=== PATIENT | male | born 1985 | race American Indian/Alaskan Native ===

== ENCOUNTER 2020-08-27 20:02 | Emergency (ER) | payer SELFPAY ==
[2020-08-27] MEDS ORDERED: levETIRAcetam 1000 MG/NS 0.75% 1,000 MG/100 ML BAG IV ONE (20:25)
[2020-08-27 20:50] LABS: Hemoglobin 13.6 gm/dl (11.8-15.2)
[2020-08-27 21:00] LABS: INR 0.89 (0.87-1.13)
[2020-08-27 21:13] LABS: Bilirubin,Urine NEG (Negative); Blood,Urine SM (Negative); Color,Urine Colorless (Yellow); Mucus,Urine FEW /HPF; Protein,Urine <15 mg/dL mg/dL (Negative); Urobilinogen,Urine < 2.0 mg/dL (<2.0); WBC,Urine < 1.0 /HPF (0.0-6.0)
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
[2020-08-27 21:16] LABS: Alanine Aminotransferase 18 units/L (7-56); Albumin 4.4 g/dL (3.9-5); Blood Urea Nitrogen 11 mg/dL (9-20); Calcium 8.9 mg/dL (8.4-10.2); Hemolysis Index 28
[2020-08-27] MEDS ORDERED: HALOPERIDOL LACTATE 5 MG/1 ML INJ IM PRN (21:20)
[2020-08-27] MEDS ORDERED: LORazepam 2 MG/ML VIAL IM PRN (21:20)
[2020-08-27 21:21] LABS: BUN/Creatinine Ratio 16
[2020-08-27] MEDS ORDERED: ACETAMINOPHEN 325 MG TAB PO ONE (21:52)
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
--- NOTE | 2020-08-27 22:28 | Cat Scan Report ---
CT CERVICAL SPINE WITHOUT CONTRAST INDICATION: Seizure. TECHNIQUE: All CT scans at this location are performed using CT dose reduction for ALARA by means of automated e xposure control. Axial CT images were obtained through the cervical spine. Sagittal and coronal reformatted images we re produced. COMPARISON: None available. FINDINGS: Fracture: None. Subluxation: None. Spinal canal: No significant compromise. Disc spaces: Normal. Facet joints: Normal. Paraspinal soft tissues: No soft tissue swelling. Normal. Additional findings: None. Lung apices: Normal. IMPRESSION: 1. No acute findings. Signer Name: Ashok Macedo MD Signed: 08/27/2020 10:23 PM Workstation Name: [id number]
--- NOTE | 2020-08-27 22:37 | Cat Scan Report ---
CT HEAD WITHOUT CONTRAST INDICATION / CLINICAL INFORMATION: Seizure. TECHNIQUE: All CT scans at this location are performed using CT dose reduction for ALARA by means of automated e xposure control. COMPARISON: None available. FINDINGS: HEMORRHAGE: None. EXTRA-AXIAL SPACES: Normal in size and morphology for the patient's age. VENTRICULAR SYSTEM: Normal in size and morphology for the patient's age. CEREBRAL PARENCHYMA: Mild focal encephalomalacia along the anterior aspect right temporal lobe. Mild peripheral areas of encephalomalacia right frontal lobe image 14 and right frontal parietal lobe imag e 21. MIDLINE SHIFT OR HERNIATION: None. CEREBELLUM / BRAINSTEM: No significant abnormality. ORBITS: Normal as visualized. SOFT TISSUES of HEAD: No significant abnormality. CALVARIUM: No significant abnormality. PARANASAL SINUSES / MASTOID AIR CELLS: Normal as visualized. ADDITIONAL FINDINGS: None. IMPRESSION: 1. 3 focal areas of encephalomalacia within the right cerebral hemisphere may be secondary to develop mental anomalies, old infarcts or possibly previous trauma in the right temporal lobe. 2. No intracranial bleed or large acute territorial infarction. Signer Name: Ashok Macedo MD Signed: 08/27/2020 10:33 PM Workstation Name: [id number]
[2020-08-27] MEDS ORDERED: SODIUM CHLORIDE 0.9% 1000 ML 2,000 ML ONE (23:08)
[2020-08-27] MEDS ORDERED: SODIUM CHLORIDE 0.9% 1000 ML 2,000 ML IV ONE (23:10)
[2020-08-28 07:43] VITALS: BP 107/56
== END 2020-08-28 08:08 | disposition home or self-care (01) ==
LOC: ED 20:02
DX: F10.129 Alcohol abuse with intoxication, unspecified (principal); G40.909 Epilepsy, unspecified, not intractable, without status epilepticus; M79.605 Pain in left leg; M79.604 Pain in right leg; F17.200 Nicotine dependence, unspecified, uncomplicated; Z79.899 Other long term (current) drug therapy
CPT/HCPCS: 36415; 70450; 71045; 72125; 72170; 73560; 80053; 81001; 82550; 83735; 85014; 85018; 85049; 85610; 93005; 96361; 96374; 99285; J1953; J7030; 80320; G0480